=== PATIENT | male | born 1995 | race Caucasian/White ===

== ENCOUNTER 2023-10-04 16:05 | Emergency (ER) | payer MEDICAID, SELFPAY ==
[2023-10-04 16:09] VITALS: BP 139/90; PULSE 91; RESP 18; TEMP 36.6; O2SAT 97; BMI 43.0
--- NOTE | 2023-10-04 16:19 | ED_ITS ---
HPI - Abdominal Pain General Chief Complaint: Abdominal Pain Stated Complaint: ABDOMINAL PAIN Time Seen by Provider: 10/04/23 16:17 Source: patient Mode of arrival: walk-in History of Present Illness HPI narrative: 28 year old male presents to the ED for LLQ pain. Onset was 3-4 days ago. Denies fever, chills, N/V/D, constipation, urinary sx. Reports hx diverticulitis. States he completed antibiotics 4 days ago. He had a drain removed from his left lower back/buttock a few days ago; states it was placed for his diverticulitis, abscess. Related Data Home Medications Medication Instructions Recorded Confirmed No Known Home Medications 10/04/23 10/04/23 Allergies Allergy/AdvReac Type Severity Reaction Status Date / Time No Known Drug Allergies Allergy Verified 10/04/23 16:13 Review of Systems ROS Constitutional Denies: fever or chills Ears, nose, mouth, and throat Denies: throat pain or neck pain Respiratory Denies: shortness of breath Gastrointestinal Reports: abdominal pain; Denies: nausea, vomiting, diarrhea or constipation Genitourinary Denies: painful urination, urinary frequency, urinary urgency or blood in urine Musculoskeletal Denies: back pain or neck pain Integumentary/Breast Denies: rash Neurological Denies: headache Exam Constitutional Vital Signs, click to edit/add: Last Vital Signs Temp 98 F 10/04/23 16:09 Pulse 78 10/04/23 21:32 Resp 16 10/04/23 21:32 BP 128/88 10/04/23 21:32 Pulse Ox 98 10/04/23 21:32 O2 Del Method Room Air 10/04/23 21:32 Common normals: no apparent distress and oriented x3 HENMT Mouth: oral and palatal mucosa normal and lip normal Eye Common normals: conjunctivae normal and no scleral icterus Neck & C-Spine Common normals: supple Chest Chest: symmetrical chest wall rise Respiratory Common normals: normal respiratory effort Effort & inspection: able to speak in complete sentences Cardio Common normals: regular rate and regular rhythm GI Common normals: Normal to inspection, nondistended, normoactive bowel sounds present and soft to palpation Palpation: tender Details: LLQ Neuro Common normals: oriented x3 Sensorium/orientation: awake and alert Speech: speech normal Course Vital Signs Vital signs: Vital Signs Temperature 98 F 10/04/23 16:09 Pulse Rate 91 H 10/04/23 16:09 Respiratory Rate 18 10/04/23 16:09 Blood Pressure 139/90 10/04/23 16:09 Pulse Oximetry 97 10/04/23 16:09 Oxygen Delivery Method Room Air 10/04/23 16:09 Temperature 98 F 10/04/23 16:09 Pulse Rate 78 10/04/23 21:32 Respiratory Rate 16 10/04/23 21:32 Blood Pressure 128/88 10/04/23 21:32 Pulse Oximetry 98 10/04/23 21:32 Oxygen Delivery Method Room Air 10/04/23 21:32 MDM - Abdominal Pain MDM Narrative Medical decision making narrative: The patient presented for LLQ pain. WBC count was unremarkable. He has hx chronic, recurring abdominal abscesses x4 years. CT scan was abnormal today and was concerning for abscess and ruptured appendicitis. The patient sees a colorectal specialist at [facility]. I spoke with his specialist Dr. Jamie Soto. He reported the patient has had chronic abdominal abscesses x4 years and has been noncompliant. He has refused surgery per the specialist. Dr. Soto stated he is unable to determine if the areas of concern on the scan today were new or known; he recommended transfer for evaluation. The patient will be transferred to [facility] for evaluation by the specialist. The patient is in agreement with the transfer. He was given a dose of Zosyn here in the ED. I also spoke with Dr. Tripp Wise at [facility] who accepted the transfer. Differential Diagnosis Differential diagnosis: Likely abdominal pain, acute appendicitis, calculus of kidney, diverticulitis and small bowel obstruction Medical Records Attestation: I reviewed the patient's medical records. Lab Data Attestation: I reviewed the patient's lab results. Labs: Lab Results 10/04/23 Range/Units 16:30 WBC 7.9 (4.0-11.0) 10^3/uL RBC 4.74 (4.70-6.10) 10^6/uL Hgb 14.1 (14.0-18.0) g/dL Hct 42.7 (42.0-54.0) % MCV 90.1 (80.0-94.0) fL MCH 29.7 (25.9-34.0) pg MCHC 33.0 (29.9-35.2) g/dL RDW 12.6 (11.0-15.0) % Plt Count 258 (150-450) 10^3/uL MPV 9.3 L (9.5-13.5) fL Neut % (Auto) 66.2 (43.0-75.0) % Lymph % (Auto) 21.8 (20.5-60.0) % D[place]key % (Auto) 10.1 (1.7-12.0) % Eos % (Auto) 1.1 (0.9-7.0) % Baso % (Auto) 0.5 (0.2-2.0) % Neut # (Auto) 5.2 (1.4-6.5) 10^3/uL Lymph # (Auto) 1.7 (1.2-3.8) 10^3/uL Dickey # (Auto) 0.8 (0.3-0.8) 10^3/uL Eos # (Auto) 0.1 (0.0-0.7) 10^3/uL Baso # (Auto) 0.0 (0.0-0.1) 10^3/uL Abs Immat Gran (auto) 0.02 (0.00-0.03) 10^3/uL Imm/Tot Granulo (auto) 0.3 (0.0-0.5) % Sodium 135 L (136-145) mmol/L Potassium 3.7 (3.5-5.1) mmol/L Chloride 98 (98-107) mmol/L Carbon Dioxide 26.2 (21.0-32.0) mmol/L Anion Gap 14.5 BUN 12.0 (7.0-18.0) mg/dL Creatinine 0.82 (0.70-1.30) mg/dL Est GFR ( Amer) >60 (>=60) Est GFR (Non-Af Amer) >60 (>=60) BUN/Creatinine Ratio 14.6 Glucose 92 (74-106) mg/dL Calcium 8.9 (8.5-10.1) mg/dL Total Bilirubin 0.8 (0.2-1.0) mg/dL AST 39 H (15-37) U/L ALT 72 H (16-63) U/L Alkaline Phosphatase 109 (46-116) U/L Total Protein 8.4 H (6.4-8.2) g/dL Albumin 3.5 (3.4-5.0) g/dL Globulin 4.9 g/dL Albumin/Globulin Ratio 0.7 Lipase 24.0 (16.0-77.0) U/L Urine Color Dk. yellow (YELLOW) Urine Clarity Clear (CLEAR) Urine pH 6.0 (5.0-9.0) Ur Specific [place] 1.025 (1.005-1.025) Urine Protein Trace (NEG/TRACE) mg/dL Urine Glucose (UA) Negative (NEGATIVE) mg/dL Urine Ketones Trace A (NEGATIVE) mg/dL Urine Occult Blood Negative (NEGATIVE) Urine Nitrite Negative (NEGATIVE) Urine Bilirubin Small A (NEGATIVE) Urine Urobilinogen 4.0 A (0.2-1.0) EU/dL Ur Leukocyte Esterase Negative (NEGATIVE) Imaging Data CT scan - abdomen: Attestation: I have reviewed the pertinent imaging results. Radiologist's impression: ITS Impressions Abdomen/Pelvis CT 10/04/23 17:18 IMPRESSION: Severe inflammatory process upper pelvis midline extending left lower quadrant to left perirectal areas as noted above. Findings suspicious for perforated tip appendicitis with inflammatory process extending inferiorly along the sigmoid colon perirectal area. Perirectal fluid collection/abscess approximately 2.6 x 1.7 x 4 cm. There is extraluminal gas and fluid extending cephalad from this adjacent to the sigmoid colon. Perforated sigmoid diverticulitis not excluded although felt to be less likely. Left hydronephrosis and hydroureter felt to be secondary to extrinsic compression from the inflammatory process described above. The left pelvic ureter is normal caliber, no ureteral calculus seen. The prostate seen adjacent to the perirectal abscess is prominent but the inflammatory process/abscess appears to originate cephalad to the prostate. No bowel distention proximal to the above process. No pneumoperitoneum. No upper or mid abdominal fluid or inflammation Electronically authenticated by: TD HIGH Date: 10/04/2023 18:47 Discharge Plan Discharge Chief Complaint: Abdominal Pain Clinical Impression: Hx of abdominal abscess, Abnormal CT of the abdomen, Abdominal pain Patient Disposition: [facility] Time of Disposition Decision: 20:44 Discharge Location: [facility] Condition: Good Mode of Transportation: EMS
[2023-10-04 16:42] LABS: Basophils Percent Auto 0.5 % (0.2-2.0); Eosinophils Absolute Auto 0.1 10^3/uL (0.0-0.7); Eosinophils Percent Auto 1.1 % (0.9-7.0); Hematocrit 42.7 % (42.0-54.0); Hemoglobin 14.1 g/dL (14.0-18.0); Immature Granulocytes Abs Auto 0.02 10^3/uL (0.00-0.03); Immature Granulocytes Pct Auto 0.3 % (0.0-0.5); Lymphocytes Absolute Auto 1.7 10^3/uL (1.2-3.8); Lymphocytes Percent Auto 21.8 % (20.5-60.0); Mean Corpuscular Hemoglobin 29.7 pg (25.9-34.0); Mean Corpuscular Volume 90.1 fL (80.0-94.0); Mean Platelet Volume 9.3 fL (9.5-13.5); Monocytes Absolute Auto 0.8 10^3/uL (0.3-0.8); Monocytes Percent Auto 10.1 % (1.7-12.0); Neutrophils Absolute Auto 5.2 10^3/uL (1.4-6.5); Neutrophils Percent Auto 66.2 % (43.0-75.0); Platelet Count 258 10^3/uL (150-450); Red Blood Count 4.74 10^6/uL (4.70-6.10); Red Cell Distribution Width 12.6 % (11.0-15.0); White Blood Count 7.9 10^3/uL (4.0-11.0)
[2023-10-04 16:43] LABS: Bilirubin Urine SMALL (NEGATIVE); Blood Urine NEGATIVE (NEGATIVE); Clarity Urine CLEAR (CLEAR); Color Urine DK. YELLOW (YELLOW); Glucose Urine UA NEGATIVE (NEGATIVE); Ketones Urine TRACE mg/dL (NEGATIVE); Leukocyte Esterase Urine NEGATIVE (NEGATIVE); Nitrite Urine NEGATIVE (NEGATIVE); Protein Urine TRACE mg/dL (NEG/TRACE); Specific Gravity Urine 1.025 (1.005-1.025)
[2023-10-04 16:46] LABS: Urine Microscopic Indicated NO
[2023-10-04 16:56] LABS: Alanine Aminotransferase 72 U/L (16-63); Albumin Globulin Ratio 0.7; Albumin Level 3.5 g/dL (3.4-5.0); Alkaline Phosphatase 109 U/L (46-116); Anion Gap 14.5; Aspartate Amino Transferase 39 U/L (15-37); BUN Creatinine Ratio 14.6; Bilirubin Total 0.8 mg/dL (0.2-1.0); Calcium 8.9 mg/dL (8.5-10.1); Carbon Dioxide 26.2 mmol/L (21.0-32.0); Chloride 98 mmol/L (98-107); Estimated GFR (African America >60 (>=60); Estimated GFR (Non-African Ame >60 (>=60); Globulin 4.9 g/dL; Glucose 92 mg/dL (74-106); Potassium 3.7 mmol/L (3.5-5.1); Sodium 135 mmol/L (136-145); Total Protein 8.4 g/dL (6.4-8.2)
--- NOTE | 2023-10-04 17:18 | CT_ITS ---
The [address] [address] Patient Name: YUKI STOKES MRN: [id number] date: 1995 Sex: M Assigned Patient Location: ER Current Patient Location: ER Accession/Order Number: [id number] Exam Date: 10/04/2023 17:10 Report Date: 10/04/2023 18:47 At the request of: ANJALI ALEXANDER Procedure: CT abdomen pelvis w con EXAM: CT abdomen pelvis w con HISTORY: Low abd pain . History of diverticulitis. COMPARISON: None. TECHNIQUE: CT abdomen pelvis with IV contrast. Axial scans with reformatted coronal and sagittal images. Individualized dose reduction used for this exam. Contrast: 100 mL Omnipaque 300 FINDINGS: Lower chest: Minor atelectasis lung bases, no acute process. Gynecomastia partially imaged. ABDOMEN: Bowel: There is abnormal appearance of the lower abdomen upper pelvis midline extending left lower quadrant pelvis with extraluminal gas, marked inflammatory stranding and walled off gas collection consistent with an abscess. Parotid process begins in the upper pelvis midline. There is a linear structure extending to this area from the cecum inferior to the terminal ileum probably the appendix. The appendix diameter is normal at its base but appears distended in this area and there is extraluminal gas fluid and inflammation. Findings suspicious for perforated tip appendicitis.. Inflammatory process continues left lower quadrant adjacent the sigmoid colon aren't optimally into the lower pelvis adjacent to the rectum. Sigmoid colon wall is thickened and diverticula noted in this area. Cannot completely exclude diverticulitis with perforation. Abnormal fluid in the left anterior perirectal space with rim enhancement and gas consistent with abscess measures approximately 3.6 cm AP by 1.7 cm transverse by 4 cm craniocaudad diameter. Extraluminal gas and fluid extend cephalad from this to the level of the sigmoid colon. The bowel proximal to this is unremarkable without distention. There are scattered diverticula elsewhere in the colon without pericolonic inflammation. Normal appearance of the terminal ileum and cecum. No ascites or free fluid or inflammation in the abdomen above this. There symmetric renal enhancement. There is left hydronephrosis and hydroureter. Left ureter is dilated down to the inflammatory process in the upper pelvis as crosses the iliac vein. Maximum diameter 1.5 cm. Reference axial series 3 image 118, sagittal series 6 image 53 and coronal series 5 image 73. This is probably due to extrinsic compression from the inflammatory process described above. I do not see a stone in the ureter. Normal appearance of the right kidney and ureter. No focal liver lesion seen. Small amount of fluid in the gallbladder without wall thickening or calcified stone. No surrounding inflammation. Normal-appearing adrenal glands, pancreas spleen. Subcentimeter periaortic lymph nodes, no adenopathy. Normal size aorta, IVC and arterial/venous structures. Pelvis: Inflammatory process extending from midline upper pelvis and left lower quadrant and left perirectal area as noted above. Question whether this is primary perforated tip appendicitis with inflammation and abscess. The apparent abnormality the sigmoid colon may be secondary to the above. There are however scattered apical particular in the area. Bladder tames fluid mildly thickened wall. The pelvic ureters are normal in appearance including the left. Osteophyte mildly prominent. CT/CT abdomen pelvis w con IMPRESSION: Severe inflammatory process upper pelvis midline extending left lower quadrant to left perirectal areas as noted above. Findings suspicious for perforated tip appendicitis with inflammatory process extending inferiorly along the sigmoid colon perirectal area. Perirectal fluid collection/abscess approximately 2.6 x 1.7 x 4 cm. There is extraluminal gas and fluid extending cephalad from this adjacent to the sigmoid colon. Perforated sigmoid diverticulitis not excluded although felt to be less likely. Left hydronephrosis and hydroureter felt to be secondary to extrinsic compression from the inflammatory process described above. The left pelvic ureter is normal caliber, no ureteral calculus seen. The prostate seen adjacent to the perirectal abscess is prominent but the inflammatory process/abscess appears to originate cephalad to the prostate. No bowel distention proximal to the above process. No pneumoperitoneum. No upper or mid abdominal fluid or inflammation Electronically authenticated by: TD HIGH Date: 10/04/2023 18:47
[2023-10-04 17:47] VITALS: BP 132/88; PULSE 86; RESP 18; O2SAT 98
[2023-10-04 19:05] VITALS: BP 138/82; PULSE 77; RESP 16; O2SAT 98
[2023-10-04] MEDS: PIPERACILLIN SODIUM/TAZOBACTAM 4.5 GM in 0.9 % SODIUM CHLORIDE 50 ML IV (19:32)
[2023-10-04 21:32] VITALS: BP 128/88; PULSE 78; RESP 16; O2SAT 98
[2023-10-04 23:30] VITALS: BP 138/78; PULSE 80; RESP 16; O2SAT 99
[2023-10-04 23:39] VITALS: BP 145/75; PULSE 66; RESP 16; O2SAT 98
[2023-10-05 00:20] VITALS: BP 138/78; PULSE 70; RESP 18; O2SAT 99
== END 2023-10-05 00:20 | disposition short-term general hospital (02) ==
PROVIDERS: Nurse Practitioner Family; Emergency Provider Emergency Medicine
DX: R10.9 Unspecified abdominal pain (principal); R93.5 Abnormal findings on diagnostic imaging of other abdominal regions, including retroperitoneum; Z87.898 Personal history of other specified conditions
CPT/HCPCS: 36415; 74177; 80053; 81003; 83690; 85025; 96365; 99285; Q9967